=== PATIENT | male | born 1965 | race Caucasian/White ===

== ENCOUNTER 2020-11-10 06:57 | Day surgery (SDC) | payer BC ==
[2020-11-08 11:48] LABS: BASOPHILS # (AUTO) 0.1 X10'3 (0-0.2); BASOPHILS % (AUTO) 0.7 % (0-1); EOSINOPHILS # (AUTO) 0.3 X10'3 (0-0.9); EOSINOPHILS % (AUTO) 4.4 % (0-6); HEMATOCRIT 45.9 % (42.0-52.0); HEMOGLOBIN 15.2 g/dl (14.0-17.9); LYMPHOCYTES # (AUTO) 1.9 X10'3 (1.1-4.8); LYMPHOCYTES % (AUTO) 25.6 % (21-51); MEAN CORPUSCULAR HEMOGLOBIN 30.3 PG (27.0-31.0); MEAN CORPUSCULAR HGB CONC 33.2 g/dL (33.0-36.5); MEAN CORPUSCULAR VOLUME 91.3 FL (78-98); MEAN PLATELET VOLUME 7.7 FL (7.4-10.4); MONOCYTES # (AUTO) 0.5 X10'3 (0-0.9); MONOCYTES % (AUTO) 6.5 % (2-12); NEUTROPHILS # (AUTO) 4.6 X10'3 (1.8-7.7); NEUTROPHILS % (AUTO) 62.8 % (42-75); PLATELET COUNT 266 X10'3 (140-440); RED BLOOD COUNT 5.03 X10'6 (4.70-6.10); RED CELL DISTRIBUTION WIDTH 13.2 % (11.5-14.5); WHITE BLOOD COUNT 7.3 X10'3 (4.5-11.0)
[2020-11-08 12:01] LABS: PARTIAL THROMBOPLASTIN TIME 26 SECONDS (22-32)
[2020-11-08 12:02] LABS: ALANINE AMINOTRANSFERASE 33 U/L (12-78); ALBUMIN 3.7 G/DL (3.4-5.0); ALBUMIN/GLOBULIN RATIO 1.1 (1.1-1.5); ALKALINE PHOSPHATASE 52 IU/L (46-116); ANION GAP 9 (8-16); ASPARTATE AMINO TRANSFERASE 20 U/L (10-37); BILIRUBIN,TOTAL 0.6 MG/DL (0.1-1.0); BLOOD UREA NITROGEN 17 MG/DL (7-18); BUN/CREATININE RATIO 16.7 (5.4-32.0); CALCIUM 8.9 MG/DL (8.5-10.1); CHLORIDE 104 MMOL/L (99-107); CREATININE 1.02 MG/DL (0.60-1.10); GLUCOSE 103 MG/DL (70-104); POTASSIUM 4.1 MMOL/L (3.5-5.1); SODIUM 143 MMOL/L (135-145); TOTAL CARBON DIOXIDE 29.7 MMOL/L (24-32); TOTAL PROTEIN 7.1 G/DL (6.4-8.2); eGFR 76 ML/MIN
[2020-11-10] VITALS (12 sets, daily range): BP systolic 104–126; BP diastolic 57–76
[~2020-11-10] VITALS: Ht 170.2 cm; Wt 92.1 kg
[2020-11-10] MEDS ORDERED: nitroGLYCERIN 0.4mg SUBLingual tab SL PRN (07:20)
[2020-11-10] MEDS ORDERED: LORazepam 0.5 MG tablet PO PRN (07:20)
[2020-11-10] MEDS ORDERED: normal saline 1,000 ML IV SCH (07:20)
[2020-11-10] MEDS ORDERED: diphenhydrAMINE 25mg capsule PO PRN (07:20)
[2020-11-10] MEDS ORDERED: ATOR10TA70 PO (07:27)
[2020-11-10] MEDS ORDERED: ALBUTEROL INHALER INH (07:31)
[2020-11-10] MEDS ORDERED: ASPI-1265 PO (07:31)
[2020-11-10] MEDS ORDERED: ALLERGY OTC PO (07:31)
[2020-11-10] MEDS ORDERED: iohexol 350MG/ML 100ml bottle IV ONE (10:00)
[2020-11-10] MEDS ORDERED: midazolam 1 mg/ML 2ml injection ONE (10:00)
[2020-11-10] MEDS ORDERED: iohexol 350 MG/ML 50ML vial IV ONE (10:00)
[2020-11-10] MEDS ORDERED: LIDOcaine 1% (10mg/ml)w/preservative injection 20ml MDV ONE (10:00)
[2020-11-10] MEDS ORDERED: fentaNYL/PF 50MCG/1 ML 2ML syringe ONE (10:00)
[2020-11-10] MEDS ORDERED: ondansetron/PF 4mg/2ml inj ONE (10:47)
[2020-11-10] MEDS ORDERED: normal saline 1000ml 1,000 ML IV SCH (11:35)
[2020-11-10] MEDS ORDERED: HYDROcodone/acetaminophen 5mg/325mg tablet PO PRN (12:00)
[2020-11-10] MEDS ORDERED: HYDROcodone/acetaminophen 10/325mg tab PO PRN (12:00)
== END 2020-11-10 16:55 | disposition home or self-care (01) ==
LOC: SSTAY O 06:57
PROVIDERS: ATTEND Internal Medicine Cardiovascular Disease
DX: R94.39 Abnormal result of other cardiovascular function study (principal); I25.119 Atherosclerotic heart disease of native coronary artery with unspecified angina pectoris; G47.33 Obstructive sleep apnea (adult) (pediatric); I10 Essential (primary) hypertension; E78.5 Hyperlipidemia, unspecified; E66.9 Obesity, unspecified; Z79.899 Other long term (current) drug therapy; Z98.890 Other specified postprocedural states
CPT/HCPCS: 36415; 71046; 80053; 85025; 85610; 85730; 93458; 99152; 99153; C1760; C1769; J1644; J2001; J2250; J2405; J3010; J7030; Q0163; Q9967; A4620; A6258